=== PATIENT | male | born 1970 | race Caucasian/White ===

== ENCOUNTER 2017-05-16 10:13 | Emergency (ER) | payer BC ==
[~2017-05-16] VITALS: Ht 172.7 cm; Wt 68.0 kg
--- NOTE | ~2017-05-16 | CT4 ---
[facility] A Service [facility] RADIOLOGY TEXT RESULTS PATIENT: ELSA WOO LOCATION: [facility] : 66 UNIT #: [id number] AGE: [address]: Arely Mukherjee APRN SEX: M ORDER DR: [id number] [facility]. [place], [place] [address] [id number] MR#: [id number] Acc #: [id number] NAME: ELSA WOO. : 1970 SEX: M STUDY DATE/TIME: 05/16/2017 11:42 UNIT: [facility] ROOM: STUDY DESCRIPTION: CT Abd and Pelv Wo Cont Attending Physician: Arely Mukherjee A.P.R.N. Ordering Physician: [facility] MEDICAL IMAGING REPORT This report is preliminary unless electronic signature is present EXAM CT abdomen and pelvis without contrast HISTORY Left flank pain since 5:30 a.m. History of kidney stones. COMPARISON STUDIES None. TECHNIQUE Axial 3 mm images were obtained through the abdomen and pelvis without IV or oral contrast. Sagittal and coronal reconstructions were generated. This CT exam was performed with one or more of the following radiation dose reduction techniques: automatic exposure control, adjustment of mA and/or kV according to patient size, and iterative reconstruction. FINDINGS Lung bases are clear. Liver, gallbladder, spleen, pancreas, adrenal glands and right kidney are normal. There is hydronephrosis involving the left kidney with perinephric edema and this is due to a stone proximal ureter measuring about 4 mm in diameter. Aorta is normal in size. There is no adenopathy. The bowel, bladder and prostate gland are normal. Bones are unremarkable. IMPRESSION 1. 4 mm proximal left ureteral stone with moderate hydronephrosis. 2. Otherwise, normal. [facility] A Service of [facility] RADIOLOGY TEXT RESULTS PATIENT: ELSA WOO LOCATION: [facility] : 66 UNIT #: [id number] AGE: [address]: Mukherjee,Arely K GAS OPERATOR SEX: M ORDER DR: Dictated by... Magan Kearney M.D. THIS IS AN ELECTRONICALLY VERIFIED REPORT Magan Kearney M.D. at 05/17/2017 7:40 AM FEL/pcl TD: 05/16/2017 21:37 JOB #: [id number] MEDICAL IMAGING REPORT Page 1 of 1 COPY
[~2017-05-16 10:13] MED LIST: LORTAB 10-5001 EACH PO
[2017-05-16 11:42] LABS: BASOPHIL# 0.1 X10e3 (0-0.3); BASOPHIL% 0.3 % (0-2.5); EOSINOPHIL% 0.1 % (0.0-7.0); HEMATOCRIT 44.8 % (38.0-50.0); HEMOGLOBIN 14.8 gm/dL (13.0-16.0); LYMPHOCYTE# 1.2 X10e3 (1.0-3.5); LYMPHOCYTE% 7.7 % (17.0-45.0); MEAN CORPUSCULAR HEMOGLOBIN 30.5 PG (28-34); MEAN CORPUSCULAR HGB CONC 33.1 g/dL (30-36); MEAN PLATELET VOLUME 11.1 FL (6.5-11.5); MONOCYTE% 6.2 % (3.0-12.0); NEUTROPHIL# 13.6 X10e3 (1.5-7.1); NEUTROPHIL% 85.7 % (40-75); PLATELET COUNT 193 X10e3 (140-420); RED BLOOD COUNT 4.87 X10e (3.90-5.60); WHITE BLOOD COUNT 15.9 X10e3 (4.0-10.5)
[2017-05-16 11:43] LABS: DIFF IND YES
[2017-05-16 12:01] LABS: ALBUMIN SERUM 4.5 g/dL (3.5-5.0); BILIRUBIN, DIRECT 0.1 mg/dL (0.0-0.2); BILIRUBIN,INDIRECT 0.9 mg/dL (0.0-0.9); BUN/CREATININE RATIO 11.66; CALCIUM SERUM 9.6 mg/dL (8.4-10.2); CREATININE SERUM 1.2 mg/dL (0.6-1.4); GLOM FILT RATE Estimated 71.1 mL/min (>60); POTASSIUM 4.3 mmol/L (3.5-5.1); PROTEIN TOTAL SERUM 7.1 g/dL (6.0-8.3)
[2017-05-16 12:15] LABS: ANISOCYTOSIS SL; PLATELET ESTIMATE NORMAL (NORMAL)
[2017-05-16 12:28] LABS: URINE SOURCE CLEAN CATCH
[2017-05-16 12:33] LABS: URINE APPEARANCE CLEAR; URINE BILIRUBIN NEG (NEG); URINE BLOOD 3+ (NEG); URINE COLOR YELLOW; URINE GLUCOSE NEG (NEG); URINE KETONE 1+ (NEG); URINE LEUKOCYTE ESTERASE TRACE (NEG); URINE NITRATE NEG (NEG); URINE PH 8.5 (5-8); URINE PROTEIN TRACE (NEG); URINE SPECIFIC GRAVITY 1.022 (1.003-1.035); URINE UROBILINOGEN 0.2 MG/DL (NEG)
[2017-05-16 12:36] LABS: URBCS1 AUWI INNUM /[HPF] (0-2); URINE BACTERIA AUWI NEG (NEGATIVE); URINE SQUAMOUS EPITHELIAL CELL NONE SEEN /[HPF]; UWBCS1 AUWI 0-2 (0-5)
[2017-05-16 12:47] LABS: CULTURE INDICATED? NO
== END 2017-05-16 15:05 | disposition home or self-care (01) ==
LOC: CED 10:13
DX: N13.2 Hydronephrosis with renal and ureteral calculous obstruction (principal); K21.9 Gastro-esophageal reflux disease without esophagitis; F17.210 Nicotine dependence, cigarettes, uncomplicated
CPT/HCPCS: 36415; 74176; 80048; 80076; 81003; 83690; 85025; 96361; 96374; 96375; 99284; J1885; J2270; J2405